=== PATIENT | male | born 1990 | race Caucasian/White ===

== ENCOUNTER 2018-12-26 11:52 | Inpatient (IN) | payer OTHER ==
[2018-12-26 16:00] VITALS: BMI 27.8
--- NOTE | 2018-12-26 17:19 | HP ---
COWS - Scale Resting Pulse: 0= [place] 80 or Below Sweatin=Flushed/Facial Moisture Restless Observation: 5= Unable to Sit Still Pupil Size: 1= Pupils >than Normal Bone or Joint Aches: 4=Acute Joint/Muscle Pain Runny Nose/ Eye Tearin= Runny Nose/Eyes GI Upset > 30mins: 3= Vomiting/Diarrhea Tremor Observation: 2= Slight Tremor Visible Yawning Observation: 0= None Anxiety or Irritability: 4=Extreme Anxiety Goose Flesh Skin: 0=Smooth Skin COWS Score: 23 CIWA Score Nausea/Vomitin-Int. Nausea w/Dry Heave Muscle Tremors: 2 Anxiety: 4-Mod. Anxious/Guarded Agitation: 5 Paroxysmal Sweats: 4-Forehead w/Sweat Beads Orientation: 0-Oriented Tacttile Disturbances: 0-None Auditory Disturbances: 1-Very Mild Visual Disturbances: 2-Mild Sensitivity Headache: 0-None Present CIWA-Ar Total Score: 22 - Admission Criteria OASAS Guidelines: Admission for Medically Managed Detox: Requires at least one of the followin. CIWA greater than 12 2. Seizures within the past 24 hours 3. Delirium tremens within the past 24 hours 4. Hallucinations within the past 24 hours 5. Acute intervention needed for co occurring medical disorder 6. Acute intervention needed for co occurring psychiatric disorder 7. Severe withdrawal that cannot be handled at a lower level of care (continued vomiting, continued diarrhea, abnormal vital signs) requiring intravenous medication and/or fluids 8. Admission ROS [facility] Allergies/Adverse Reactions: Allergies Allergy/AdvReac Type Severity Reaction Status Date / Time No Known Allergies Allergy Verified 12/26/18 15:49 History of Present Illness: pt here requesting detox from etoh and heroin use , reports heroin 1-2 bundles /day IVDU in [facility] >> LEFT , needles from the pharmacy , denies sharing , + re-using , + abscess 10 years ago , denies OD , relapsed aug 2018 , prior sobriety x 5 years , first age of use 19 , latest use yesterday morning , current symptoms as above . etoh 1 liter bourbon / day , cut back in the last month to 5-6 drinks / day , latest use today , + w/d seizures years ago , + blackouts , + tremors if not drinking , starts drinking in the mornings , current symptoms as above . cocaine : 20 $/day benzo : xanax " when I can't drink , to make sure I don't shake " had rx in the past tobacco : 1 ppd . PMHX : denies psych : denies current SI / HI PSHx : denies SHX ; lives alone , finances habit through savings , denies legal issues Search Terms: wanda alejandro, 1990 Search Date: 12/26/2018 05:20:50 PM The Drug Utilization Report below displays all of the controlled substance prescriptions, if any, that your patient has filled in the last twelve months. The information displayed on this report is compiled from pharmacy submissions to the Department, and accurately reflects the information as submitted by the pharmacies. This report was requested by: Adeline Morales | Reference #: [id number] There are no results for the search terms that you entered. Exam Limitations: Clinical Condition - Ebola screening Have you traveled outside of the country in the last 21 days: No (N) Have you had contact with anyone from an Ebola affected area: No Do you have a fever: No - Review of Systems Constitutional: See HPI EENT: reports: Nose Congestion, Other (glasses) Respiratory: reports: No Symptoms reported Cardiac: reports: No Symptoms Reported GI: reports: See HPI : reports: No Symptoms Reported Musculoskeletal: reports: Back Pain, Muscle Pain, Other (generalized bidy aches " it's the withdrawal " , reports fall 2 months ago and hit right side of the chest " i have broken ribs before , they never do anything for it " .) Integumentary: reports: See HPI (ivdu) Neuro: reports: See HPI, Tremors, Unsteady Gait Endocrine: reports: No Symptoms Reported Psychiatric: reports: Orientated x3, Agitated, Anxious Patient History - Patient Medical History Hx Anemia: No Hx Asthma: No Hx Chronic Obstructive Pulmonary Disease (COPD): No Hx Cancer: No Hx Cardiac Disorders: No Hx Hypertension: No Hx Hypercholesterolemia: No Hx Pacemaker: No HX Cerebrovascular Accident: No Hx Seizures: No Hx Dementia: No Hx Diabetes: No Hx Gastrointestinal Disorders: No Hx Liver Disease: No Hx Genitourinary Disorders: No Hx Sexually Transmitted Disorders: No Hx Renal Disease (ESRD): No Hx Thyroid Disease: No Hx Human Immunodeficiency Virus (HIV): No (11/01 last) Hx Hepatitis C: No Hx Depression: Yes (anxiety) Hx Suicide Attempt: No Hx Bipolar Disorder: No Hx Schizophrenia: No - Patient Surgical History Past Surgical History: No - PPD History Date: 02/15/14 - Smoking Cessation Smoking history: Current every day smoker Have you smoked in the past 12 months: Yes Aproximately how many cigarettes per day: 20 Cigars Per Day: 30 Hx Chewing Tobacco Use: No Initiated information on smoking cessation: No - Substances abused Heroin Substance route: Injection Frequency: Daily Amount used: 1-2 bundles Age of first use: 19 Date of last use: 12/25/18 Cocaine Substance route: Smoking Frequency: 3-6 times per week Amount used: $20 Age of first use: 17 Date of last use: 12/26/18 Alcohol Substance route: Oral Frequency: Daily Amount used: 5-6 shots of Whiskey Age of first use: 14 Date of last use: 12/26/18 Family Disease History - Family Disease History Family Disease History: Heart Disease: Grandparent (maternal ), Other: Father ( sarcoidosis, glaucoma ), Mother (kidney CA , spinal surgery , thyroid dz ) Other Family History: only child Admission Physical Exam S - Vital Signs Vital Signs: Vital Signs - 24 hr 12/26/18 15:45 Temperature 97.6 F Pulse Rate 65 Respiratory 18 Rate Blood Pressure 128/77 - Physical General Appearance: Yes: Disheveled, Severe Distress, Irritable, Sweating, Anxious HEENTM: Yes: EOMI, Hearing grossly Normal, Normocephalic, Normal Voice, Nasal Congestion, Rhinorrhea Respiratory: Yes: Lungs Clear, Normal Breath Sounds, No Respiratory Distress, No Accessory Muscle Use Neck: Yes: No masses,lesions,Nodules, Trachea in good position Cardiology: Yes: Regular Rhythm, Regular Rate, S1, S2 Abdominal: Yes: Non Tender, Soft Extremities: Yes: Normal Range of Motion, Non-Tender, Tremors Neurological: Yes: Alert, Motor Strength 5/5 Integumentary: Yes: Warm - Diagnostic (1) Alcohol abuse Current Visit: Yes Status: Acute (2) Nicotine dependence Current Visit: Yes Status: Chronic Qualifiers: Nicotine product type: cigarettes (3) Opioid dependence Current Visit: Yes Status: Acute Qualifiers: Substance use status: in withdrawal Qualified Code(s): F11.23 - Opioid dependence with withdrawal (4) Cocaine abuse Current Visit: Yes Status: Chronic Breathalyzer - Breathalyzer Breathalyzer: 0 Urine Drug Screen - Test Device Lot number: [id number] Expiration date: 09/18/20 - Control Is test valid?: Yes - Results Drug screen NEGATIVE: No Urine drug screen results: MATTIE-Cocaine, MOP-Opiates Inpatient Rehab Admission - Rehab Decision to Admit Inpatient rehab admission?: No
[2018-12-26] MEDS ORDERED: MAGNESIUM HYDROX 2400MG/30ML ORAL SUSPENSION 30 ML CUP PO PRN (17:29)
[2018-12-26] MEDS ORDERED: BISMUTH SUBSALICYLATE 524 MG/30 ML UD PO PRN (17:29)
[2018-12-26] MEDS ORDERED: MAGNESIUM CITRATE 300 ML BOTTLE PO PRN (17:29)
[2018-12-26] MEDS ORDERED: IBUPROFEN 400 MG TABLET (FP) PO PRN (17:29)
[2018-12-26] MEDS ORDERED: MAG HYDROX/AL HYDROX/SIMETH 30 ML UNIT-DOSE CUP PO PRN (17:29)
[2018-12-26] MEDS ORDERED: ACETAMINOPHEN 325 MG TABLET (FP) PO PRN ×2 (17:29)
[2018-12-26] MEDS ORDERED: MENTHOL/PHENOL 1 EACH UD MM PRN (17:29)
[2018-12-26] MEDS ORDERED: METHADONE HCL 10 MG TABLET (FOR DETOX USE ONLY) PO ONE (18:15)
[2018-12-26] MEDS: hydrOXYzine PAMOATE 25 MG CAPSULE (FP) PO PRN (18:55)
[2018-12-26] MEDS: NICOTINE POLACRILEX 2 MG GUM BUC PRN (19:17)
[2018-12-26] MEDS: THIAMINE HCL 100 MG TABLET (FP) PO SCH (22:45)
[2018-12-26] MEDS: chlordiazePOXIDE HCL 25 MG CAPSULE PO SCH (22:46)
[2018-12-26] MEDS: MELATONIN 5 MG TABLETS PO PRN (22:46)
[2018-12-27] MEDS: chlordiazePOXIDE HCL 25 MG CAPSULE PO PRN ×3 (03:47→20:25)
[2018-12-27] MEDS: chlordiazePOXIDE HCL 25 MG CAPSULE PO SCH ×4 (06:06→22:53)
[2018-12-27] MEDS: NICOTINE POLACRILEX 2 MG GUM BUC PRN ×6 (06:07→20:26)
--- NOTE | 2018-12-27 08:38 | EKG ---
Test Reason : Blood Pressure : / mmHG Vent. Rate : 068 BPM Atrial Rate : 068 BPM P-R Int : 146 ms QRS Dur : 098 ms QT Int : 408 ms P-R-T Axes : 002 034 042 degrees QTc Int : 433 ms NORMAL SINUS RHYTHM NORMAL ECG NO PREVIOUS ECGS AVAILABLE Confirmed by ROSALIA HOLLAND, JAIME ([id number]) on 12/27/2018 8:38:06 AM Referred By: Confirmed By:JAIME LINDSEY MD
[2018-12-27] MEDS ORDERED: METHADONE HCL 10 MG TABLET (FOR DETOX USE ONLY) PO ONE (10:00)
[2018-12-27] MEDS: PRENATAL VITAMINS W/ FOLIC ACID TABLET (FP) PO SCH (10:24)
[2018-12-27] MEDS: hydrOXYzine PAMOATE 25 MG CAPSULE (FP) PO PRN ×2 (10:25→22:54)
[2018-12-27 10:49] LABS: ALBUMIN 3.3 g/dl (3.4-5.0); BILIRUBIN,TOTAL 0.2 mg/dL (0.2-1); BLOOD UREA NITROGEN 14.2 mg/dL (7-18); CALCIUM 8.5 mg/dL (8.5-10.1); CREATININE 0.9 mg/dL (0.55-1.3); TOT PROT 6.4 g/dl (6.4-8.2)
[2018-12-27] MEDS: NICOTINE 21 MG/24 HOURS TOPICAL PATCH TD SCH (11:31)
[2018-12-27 11:47] LABS: HEMATOCRIT 38.4 % (35.4-49); HEMOGLOBIN 13.3 GM/dL (11.7-16.9); MCH 28.7 pg (25.7-33.7); MCHC 34.6 g/dl (32.0-35.9); MEAN PLT VOLUME 7.6 fl (7.5-11.1); RBC 4.62 M/mm3 (4.00-5.60); RDW 13.2 % (11.9-15.9); WHITE BLOOD COUNT 7.1 K/mm3 (4.0-10.0)
--- NOTE | 2018-12-27 12:00 | PN ---
[facility] CIWA - CIWA Score Nausea/Vomitin-No Nausea/No Vomiting Muscle Tremors: 3 Anxiety: 3 Agitation: 4-Moderately Restless Paroxysmal Sweats: 3 Orientation: 0-Oriented Tacttile Disturbances: 0-None Auditory Disturbances: 0-None Visual Disturbances: 0-None Headache: 0-None Present CIWA-Ar Total Score: 13 BHS COWS - Scale Resting Pulse: 0= [place] 80 or Below Sweatin=Flushed/Facial Moisture Restless Observation: 1= Difficult to Sit Still Pupil Size: 0= Normal to Room Light Bone or Joint Aches: 2= Severe Diffuse Aches Runny Nose/ Eye Tearin= Nasal Congestion GI Upset > 30mins: 0= None Tremor Observation of Outstretched Hands: 1= Tremor Addison, Not Seen Yawning Observation: 1= 1-2x During Session Anxiety or Irritability: 2=Irritable/Anxious Goose Flesh Skin: 3=Piloerection COWS Score: 13 S Progress Note (SOAP) Subjective: chills sweats body aches interrupted sleep agitation restless i need a nicotine patch the gum is not enough for my cigarette cravings Objective: 12/27/18 11:59 Vital Signs Temperature 97.3 F L 12/27/18 09:29 Pulse Rate 65 12/27/18 09:29 Respiratory Rate 18 12/27/18 09:29 Blood Pressure 117/73 12/27/18 09:29 O2 Sat by Pulse Oximetry (%) Laboratory Tests 12/27/18 12/27/18 08:00 08:00 Sodium 141 Potassium 4.0 Chloride 106 Carbon Dioxide 28 Anion Gap 7 L BUN 14.2 Creatinine 0.9 Est GFR (CKD-EPI)AfAm 133.30 Est GFR (CKD-EPI)NonAf 115.01 Random Glucose 82 Calcium 8.5 Total Bilirubin 0.2 AST 9 L ALT 19 Alkaline Phosphatase 94 Total Protein 6.4 Albumin 3.3 L RPR Titer Nonreactive rest of labs pending aaox3 ambulating no acute distress Assessment: 12/27/18 11:59 withdrawal sx Plan: continue detox increase fluids nicotine patch ordered as per pt request
[2018-12-27 18:37] LABS: PLATELET COUNT 274 K/MM3 (134-434)
[2018-12-27] MEDS: THIAMINE HCL 100 MG TABLET (FP) PO SCH (22:53)
[2018-12-27] MEDS: MELATONIN 5 MG TABLETS PO PRN (22:54)
[2018-12-28] MEDS: chlordiazePOXIDE HCL 25 MG CAPSULE PO SCH ×3 (05:48→16:49)
[2018-12-28] MEDS: NICOTINE POLACRILEX 2 MG GUM BUC PRN ×2 (05:49→08:38)
[2018-12-28] MEDS: chlordiazePOXIDE HCL 25 MG CAPSULE PO PRN ×3 (08:38→20:46)
[2018-12-28] MEDS ORDERED: METHADONE HCL 10 MG TABLET (FOR DETOX USE ONLY) PO ONE (10:00)
[2018-12-28] MEDS: NICOTINE 21 MG/24 HOURS TOPICAL PATCH TD SCH (10:25)
[2018-12-28] MEDS: PRENATAL VITAMINS W/ FOLIC ACID TABLET (FP) PO SCH (10:25)
[2018-12-28] MEDS: hydrOXYzine PAMOATE 25 MG CAPSULE (FP) PO PRN ×2 (11:52→20:46)
--- NOTE | 2018-12-28 13:12 | PN ---
[facility] CIWA - CIWA Score Nausea/Vomitin-Mild Nausea/No Vomiting Muscle Tremors: 3 Anxiety: 3 Agitation: 3 Paroxysmal Sweats: 3 Orientation: 0-Oriented Tacttile Disturbances: 0-None Auditory Disturbances: 0-None Visual Disturbances: 0-None Headache: 0-None Present CIWA-Ar Total Score: 13 BHS COWS - Scale Resting Pulse: 0= [place] 80 or Below Sweatin= Chills/Flushing Restless Observation: 3= Extraneous Movement Pupil Size: 0= Normal to Room Light Bone or Joint Aches: 2= Severe Diffuse Aches Runny Nose/ Eye Tearin= Runny Nose/Eyes GI Upset > 30mins: 2= Nausea/Diarrhea Tremor Observation of Outstretched Hands: 2= Slight Tremor Visible Yawning Observation: 0= None Anxiety or Irritability: 2=Irritable/Anxious Goose Flesh Skin: 0=Smooth Skin COWS Score: 14 S Progress Note (SOAP) Subjective: Sweating, chills, interrupted sleep Objective: 12/28/18 13:10 Last Vital Signs Temp Pulse Resp BP Pulse Ox 97.5 F L 51 L 16 124/76 12/28/18 09:14 12/28/18 09:14 12/28/18 09:14 12/28/18 09:14 Laboratory Tests 12/27/18 12/27/18 12/27/18 08:00 08:00 08:00 WBC 7.1 RBC 4.62 Hgb 13.3 Hct 38.4 MCV 83.0 MCH 28.7 MCHC 34.6 RDW 13.2 Plt Count 274 MPV 7.6 Sodium 141 Potassium 4.0 Chloride 106 Carbon Dioxide 28 Anion Gap 7 L BUN 14.2 Creatinine 0.9 Est GFR (CKD-EPI)AfAm 133.30 Est GFR (CKD-EPI)NonAf 115.01 Random Glucose 82 Calcium 8.5 Total Bilirubin 0.2 AST 9 L ALT 19 Alkaline Phosphatase 94 Total Protein 6.4 Albumin 3.3 L RPR Titer Nonreactive Labs reviewed Assessment: 12/28/18 13:10 Withdrawal symptoms Plan: Continue detox Encouraged PO water hydration
[2018-12-28] MEDS: METHOCARBAMOL 500 MG TABLET PO PRN ×2 (14:12→22:45)
[2018-12-28] MEDS: THIAMINE HCL 100 MG TABLET (FP) PO SCH (22:44)
[2018-12-28] MEDS: chlordiazePOXIDE HCL 10 MG CAPSULE PO SCH (22:44)
[2018-12-28] MEDS: MELATONIN 5 MG TABLETS PO PRN (22:45)
[2018-12-28] MEDS ORDERED: chlordiazePOXIDE HCL 10 MG CAPSULE PO PRN (23:00)
[2018-12-29] MEDS: chlordiazePOXIDE HCL 10 MG CAPSULE PO SCH ×4 (06:20→16:48)
[2018-12-29] MEDS ORDERED: METHADONE HCL 10 MG TABLET (FOR DETOX USE ONLY) PO ONE (10:00)
[2018-12-29] MEDS: METHOCARBAMOL 500 MG TABLET PO PRN ×2 (10:20→16:48)
[2018-12-29] MEDS: PRENATAL VITAMINS W/ FOLIC ACID TABLET (FP) PO SCH (10:20)
[2018-12-29] MEDS: NICOTINE 21 MG/24 HOURS TOPICAL PATCH TD SCH (10:21)
[2018-12-29] MEDS: NICOTINE POLACRILEX 2 MG GUM BUC PRN ×4 (10:23→22:33)
[2018-12-29] MEDS: hydrOXYzine PAMOATE 25 MG CAPSULE (FP) PO PRN (12:01)
--- NOTE | 2018-12-29 14:18 | PN ---
S CIWA - CIWA Score Nausea/Vomitin-No Nausea/No Vomiting Muscle Tremors: None Anxiety: 3 Agitation: 2 Paroxysmal Sweats: 3 Orientation: 0-Oriented Tacttile Disturbances: 1-Very Mild Itch/Numbness Auditory Disturbances: 0-None Visual Disturbances: 2-Mild Sensitivity Headache: 0-None Present CIWA-Ar Total Score: 11 S COWS - Scale Resting Pulse: 0= [place] 80 or Below Sweatin=Flushed/Facial Moisture Restless Observation: 1= Difficult to Sit Still Pupil Size: 0= Normal to Room Light Bone or Joint Aches: 0= None Runny Nose/ Eye Tearin= Nasal Congestion GI Upset > 30mins: 0= None Tremor Observation of Outstretched Hands: 0= None Yawning Observation: 1= 1-2x During Session Anxiety or Irritability: 2=Irritable/Anxious Goose Flesh Skin: 0=Smooth Skin COWS Score: 7 S Progress Note (SOAP) Subjective: Anxious, Constipation, Restless Legs, Sweating. Objective: PATIENT A & O X 3, OBSERVED AMBULATING ON UNIT UNASSISTED. IN NO ACUTE DISTRESS. 12/29/18 14:17 Vital Signs Temperature 97.7 F 12/29/18 12:52 Pulse Rate 58 L 12/29/18 12:52 Respiratory Rate 18 12/29/18 12:52 Blood Pressure 131/56 L 12/29/18 12:52 O2 Sat by Pulse Oximetry (%) Laboratory Tests 12/27/18 12/27/18 12/27/18 08:00 08:00 08:00 WBC 7.1 RBC 4.62 Hgb 13.3 Hct 38.4 MCV 83.0 MCH 28.7 MCHC 34.6 RDW 13.2 Plt Count 274 MPV 7.6 Sodium 141 Potassium 4.0 Chloride 106 Carbon Dioxide 28 Anion Gap 7 L BUN 14.2 Creatinine 0.9 Est GFR (CKD-EPI)AfAm 133.30 Est GFR (CKD-EPI)NonAf 115.01 Random Glucose 82 Calcium 8.5 Total Bilirubin 0.2 AST 9 L ALT 19 Alkaline Phosphatase 94 Total Protein 6.4 Albumin 3.3 L RPR Titer Nonreactive LABS NOTED. Assessment: 12/29/18 14:17 WITHDRAWAL SYMPTOMS. Plan: CONTINUE DETOX. PATIENT SCHEDULED FOR D/C TOMORROW AM.
[2018-12-29] MEDS: MELATONIN 5 MG TABLETS PO PRN (22:31)
[2018-12-29] MEDS: THIAMINE HCL 100 MG TABLET (FP) PO SCH (22:31)
[2018-12-29] MEDS ORDERED: chlordiazePOXIDE HCL 10 MG CAPSULE PO SCH (23:00)
[2018-12-30] MEDS ORDERED: METHADONE HCL 5 MG TABLET (FOR DETOX USE ONLY) PO ONE (06:00)
--- NOTE | 2018-12-30 09:18 | PN ---
[facility] Progress Note Note: Patient reported that he fell approx. 2 months ago and that his Right-Sided Ribcage is feeling considerably better at this time. For that Reason, Patient declined to have X-Ray of Right Ribcage (ordered on Detox admission) done at this time. Patient advised to follow-up with his [employer] after discharge from Detox unit for further medical evaluation of Right Ribcage for history of fall. Patient verbalized understanding of Recommendation. Abdulkadir Huynh NP
[2018-12-30 09:52] VITALS: BP 153/92; PULSE 85; TEMP 98.2
--- NOTE | 2018-12-30 10:02 | DS ---
[facility] Detox Discharge Summary Admission Date: 12/26/18 Discharge Date: 12/30/18 - History Present History: Alcohol Dependence, Opioid Dependence, Sedative Dependence - Physical Exam Results Vital Signs: Vital Signs Temperature 98.2 F 12/30/18 09:51 Pulse Rate 85 12/30/18 09:51 Respiratory Rate 18 12/30/18 09:51 Blood Pressure 153/92 12/30/18 09:51 O2 Sat by Pulse Oximetry (%) - Treatment Hospital Course: Detox Protocol Followed, Detoxed Safely, Responded well, Discharged Condition Good, Rehab Referral Accepted - Medication Discharge Medications: Ambulatory Orders NK [No Known Home Medication] 02/13/14 - Diagnosis (1) Alcohol abuse Current Visit: Yes Status: Chronic (2) Opioid dependence Current Visit: Yes Status: Chronic Qualifiers: Substance use status: in withdrawal Qualified Code(s): F11.23 - Opioid dependence with withdrawal (3) Cocaine abuse Current Visit: Yes Status: Chronic (4) Nicotine dependence Current Visit: Yes Status: Chronic Qualifiers: Nicotine product type: cigarettes (5) Benzodiazepine dependence Current Visit: No Status: Acute (6) Drug-induced mood disorder Current Visit: No Status: Acute (7) Insomnia secondary to depression with anxiety Current Visit: No Status: Acute - AMA Did Patient Leave Against Medical Advice: No (referred to [facility])
== END 2018-12-30 09:25 | disposition home or self-care (01) | DRG 773 ==
LOC: YASAS 11:52 → Y6N 17:43
PROVIDERS: ADMIT Surgery; ATTEND Surgery
PROC: HZ2ZZZZ Detoxification Services for Substance Abuse Treatment (ICD-10-PCS; principal; 2018-12-26)
DX: F11.23 Opioid dependence with withdrawal (principal); F10.230 Alcohol dependence with withdrawal, uncomplicated; F13.20 Sedative, hypnotic or anxiolytic dependence, uncomplicated; F14.10 Cocaine abuse, uncomplicated; F17.210 Nicotine dependence, cigarettes, uncomplicated; F19.24 Other psychoactive substance dependence with psychoactive substance-induced mood disorder; F51.05 Insomnia due to other mental disorder; M54.89 Other dorsalgia; M79.18 Myalgia, other site
CPT/HCPCS: 36415; 80053; 85027; 86593; 93005; 93010